=== PATIENT | male | born 1955 | race Caucasian/White ===

== ENCOUNTER 2021-03-11 20:52 | Inpatient (IN) | payer OTHER ==
[2021-03-11] MEDS ORDERED: NYSTATIN 500,000 UNITS/5 ML SUSPENSION PO ONE (21:40)
[2021-03-11] MEDS ORDERED: SODIUM CHLORIDE 1,000 ML IV STA (21:41)
[2021-03-11 22:03] LABS: BASO % 0.6 % (0-2.0); HEMATOCRIT 47.5 % (35.4-49); LYMPH % 3.6 % (8-40); MCH 31.3 pg (25.7-33.7); MCHC 35.8 g/dl (32.0-35.9); MEAN CELL VOLUME 87.5 fl (80-96); MEAN PLT VOLUME 8.2 fl (7.5-11.1); MONO % 9.1 % (3.8-10.2); NEUT % 86.7 % (42.8-82.8); PLATELET COUNT 202 K/MM3 (134-434); RBC 5.43 M/mm3 (4.00-5.60); WHITE BLOOD COUNT 17.3 K/mm3 (4.0-10.0)
[2021-03-11] MEDS ORDERED: MAGNESIUM SULF 50% (8.12 MEQ/2 ML-1 GM VIAL) IVPB ONE (22:21)
[2021-03-11] MEDS ORDERED: MAGNESIUM SULFATE IN WATER 2 GM/50 ML IVPB IVPB ONE (22:23)
[2021-03-11 22:28] LABS: CHLORIDE 81 mmol/L (98-107)
[2021-03-11 22:30] LABS: ALBUMIN 3.5 g/dl (3.4-5.0); BLOOD UREA NITROGEN 36.9 mg/dL (7-18); CALCIUM 8.2 mg/dL (8.5-10.1); CO2 12 mmol/L (21-32)
[2021-03-11 22:34] LABS: ANISOCYTOSIS 1+; CREATININE 1.7 mg/dL (0.55-1.3); MACROCYTOSIS 0; PLATELET ESTIMATE NORMAL; SGOT/AST 16 U/L (15-37); SGPT/ALT 25 U/L (13-61)
[2021-03-11 22:35] LABS: BILIRUBIN,TOTAL 0.7 mg/dL (0.2-1); TOT PROT 6.2 g/dl (6.4-8.2)
[2021-03-11 22:36] LABS: ALK PHOS 101 U/L (45-117)
[2021-03-11] MEDS ORDERED: LACTATED RINGERS SOLUTION 1000 ML INFUS.BAG IV ONE (22:50)
[2021-03-11 22:59] LABS: ANION GAP 24 MMOL/L (8-16); GLUCOSE,RANDOM 571 mg/dL (74-106); SODIUM 116 mmol/L (136-145)
[2021-03-11 23:05] LABS: VENOUS BASE EXCESS -15.8 mmol/L (-2-2); VENOUS O2 SATURATION 50.7 % (70-80); VENOUS PH 7.202 (7.310-7.410)
[2021-03-11] MEDS ORDERED: POTASSIUM CHLORIDE TABS 20 MEQ TABLET.ER (FP) PO ONE ×2 (23:08→23:45)
[2021-03-11] MEDS ORDERED: INSULIN REGULAR HUMAN 100 UNITS/ML *VIAL* (FOR IVP) IVPUSH ONE (23:10)
[2021-03-11] MEDS ORDERED: INSULIN REGULAR 100 UNITS in SODIUM CHLORIDE 99 ML IVPB SCH (23:15)
[2021-03-11 23:22] LABS: MAGNESIUM 2.4 mg/dL (1.8-2.4)
[2021-03-11] MEDS ORDERED: SODIUM CHLORIDE 0.9% 1000 ML INFUS.BAG IV ONE (23:24)
[2021-03-11] MEDS ORDERED: INSULIN REGULAR HUMAN 100 UNITS/ML *VIAL ONE (23:29)
[2021-03-11] MEDS ORDERED: KCL 10 MEQ IVPB 20 MEQ/200 ML INFUS.BAG IVPB ONE (23:31)
[2021-03-11] MEDS: KCL 10 MEQ IVPB 10 MEQ/100 ML INFUS.BAG IVPB SCH (23:43)
[2021-03-11] MEDS ORDERED: KCL 10 MEQ IVPB 10 MEQ/100 ML INFUS.BAG IVPB ONE (23:45)
[2021-03-12 00:14] LABS: CHLORIDE 85 mmol/L (98-107); SODIUM 121 mmol/L (136-145)
[2021-03-12 00:16] LABS: ANION GAP 25 MMOL/L (8-16); BLOOD UREA NITROGEN 38.7 mg/dL (7-18); CO2 12 mmol/L (21-32); MAGNESIUM 3.1 mg/dL (1.8-2.4)
[2021-03-12 00:19] LABS: CREATININE 1.5 mg/dL (0.55-1.3)
[2021-03-12] MEDS ORDERED: SODIUM CHLORIDE 1,000 ML with POTASSIUM CHLORIDE 20 MEQ IV SCH (00:30)
[2021-03-12] MEDS ORDERED: POTASSIUM CHLORIDE 20 MEQ PREMIX IVPB 100 ML IVPB SCH (00:30)
[2021-03-12 00:39] LABS: GLUCOSE,RANDOM 494 mg/dL (74-106)
[2021-03-12 00:42] LABS: EPI CELLS 14 /uL (0-25.1); HYALINE CASTS 3 /uL (0-3.1); URINE APPEARANCE CLOUDY; URINE BACTERIA 25 /uL (0-1359); URINE BILIRUBIN NEGATIVE (NEGATIVE); URINE COLOR YELLOW; URINE GLUCOSE (UA) 3+ (NEGATIVE); URINE KETONE 3+ (NEGATIVE); URINE LEUK ESTERASE NEGATIVE (NEGATIVE); URINE NITRITE NEGATIVE (NEGATIVE); URINE PROTEIN TRACE (NEGATIVE); URINE RBC 6 /uL (0-23.9); URINE UROBILINOGEN 0.2 mg/dL (0.2-1.0); URINE WBC 8 /uL (0-25.8)
[2021-03-12 00:56] LABS: COCAINE, UR NEGATIVE ng/ml (CUTOFF=300); METHADONE, UR NEGATIVE ng/ml (CUTOFF=300); URINE AMPHETAMINES NEGATIVE ng/ml (CUTOFF=500); URINE BARBITURATES NEGATIVE ng/ml (CUTOFF=200); URINE BENZODIAZEPINES NEGATIVE ng/ml (CUTOFF=200)
[2021-03-12 00:57] LABS: PHENCYCLIDINE,URINE NEGATIVE ng/ml (CUTOFF=25)
[2021-03-12 01:35] LABS: OPIATES, URI POSITIVE ng/ml (CUTOFF=300)
[2021-03-12] MEDS: KCL 10 MEQ IVPB 10 MEQ/100 ML INFUS.BAG IVPB SCH ×6 (01:40→23:38)
[2021-03-12 02:00] LABS: EPI CELLS 15 /uL (0-25.1); HYALINE CASTS 4 /uL (0-3.1); URINE APPEARANCE CLOUDY; URINE BACTERIA 25 /uL (0-1359); URINE BILIRUBIN NEGATIVE (NEGATIVE); URINE COLOR YELLOW; URINE GLUCOSE (UA) 3+ (NEGATIVE); URINE KETONE 3+ (NEGATIVE); URINE LEUK ESTERASE NEGATIVE (NEGATIVE); URINE NITRITE NEGATIVE (NEGATIVE); URINE PROTEIN 1+ (NEGATIVE); URINE RBC 7 /uL (0-23.9); URINE UROBILINOGEN 0.2 mg/dL (0.2-1.0); URINE WBC 9 /uL (0-25.8)
[2021-03-12 02:16] LABS: CHLORIDE 94 mmol/L (98-107); SODIUM 126 mmol/L (136-145)
[2021-03-12 02:17] LABS: CALCIUM 7.4 mg/dL (8.5-10.1)
[2021-03-12 02:18] LABS: BLOOD UREA NITROGEN 31.6 mg/dL (7-18); CO2 14 mmol/L (21-32); GLUCOSE,RANDOM 239 mg/dL (74-106)
[2021-03-12 02:25] LABS: LACTIC ACID 2.1 mmol/L (0.4-2.0)
[2021-03-12] MEDS ORDERED: D5-1/2NS+40 MEQ KCL - 40 MEQ/1,000 ML INFUS.BAG IV SCH (02:30)
[2021-03-12] MEDS ORDERED: D5-NS + 40 MEQ KCL - 40 MEQ/1,000 ML INFUS.BAG IV SCH (02:30)
[2021-03-12] MEDS: POTASSIUM CHLORIDE 20 MEQ PREMIX IVPB 100 ML IVPB SCH (02:31)
[2021-03-12] MEDS: MUPIROCIN 2% TOPICAL OINTMENT FOR DECOLONIZATION NS SCH ×3 (02:31→21:46)
[2021-03-12 02:36] LABS: ANION GAP 17 MMOL/L (8-16); CREATININE 1.2 mg/dL (0.55-1.3)
[2021-03-12] MEDS ORDERED: POTASSIUM CHLORIDE TABS 20 MEQ TABLET.ER (FP) PO ONE ×2 (02:40→23:03)
[2021-03-12] MEDS: METOCLOPRAMIDE HCL INJECTION 10 MG/2 ML VIAL IVPUSH PRN ×2 (02:51→11:57)
[2021-03-12] MEDS: SODIUM CHLORIDE 0.45% 1,000 ML with POTASSIUM CHLORIDE 40 MEQ IV SCH ×2 (03:40→07:41)
[2021-03-12] MEDS ORDERED: LACTATED RINGERS SOLUTION 1000 ML INFUS.BAG IV ONE (04:02)
[2021-03-12 05:18] LABS: BASO % 0.4 % (0-2.0); EOS % 0.3 % (0-4.5); HEMATOCRIT 43.3 % (35.4-49); HEMOGLOBIN 15.9 GM/dL (11.7-16.9); LYMPH % 8.2 % (8-40); MCH 31.6 pg (25.7-33.7); MCHC 36.7 g/dl (32.0-35.9); MEAN CELL VOLUME 86.1 fl (80-96); MEAN PLT VOLUME 8.2 fl (7.5-11.1); MONO % 11.5 % (3.8-10.2); NEUT % 79.6 % (42.8-82.8); PLATELET COUNT 183 K/MM3 (134-434); RBC 5.03 M/mm3 (4.00-5.60); WHITE BLOOD COUNT 15.8 K/mm3 (4.0-10.0)
[2021-03-12] MEDS: HEPARIN NA (PORCINE) 5,000 UNITS/ML 1ML VIAL SQ SCH ×3 (05:25→21:49)
[2021-03-12 05:39] LABS: CALCIUM 7.6 mg/dL (8.5-10.1)
[2021-03-12 05:40] LABS: ALBUMIN 3.1 g/dl (3.4-5.0); BLOOD UREA NITROGEN 32.6 mg/dL (7-18)
[2021-03-12 05:43] LABS: CREATININE 1.1 mg/dL (0.55-1.3); PHOSPHOROUS 1.6 mg/dL (2.5-4.9)
[2021-03-12 05:44] LABS: BILIRUBIN,TOTAL 0.6 mg/dL (0.2-1); TOT PROT 5.3 g/dl (6.4-8.2)
[2021-03-12 06:17] LABS: LACTIC ACID 2.3 mmol/L (0.4-2.0)
[2021-03-12] MEDS ORDERED: POTASSIUM PHOSPHATE 30 MM in SODIUM CHLORIDE 250 ML IVPB ONE (06:17)
[2021-03-12] MEDS ORDERED: POTASSIUM CHLORIDE 40 MEQ in SODIUM CHLORIDE 0.45% 1,000 ML IV SCH (08:09)
[2021-03-12] MEDS ORDERED: PNEUMOC 13-VAL CONJ-DIP CRM/PF 0.5 ML DISP.SYRIN IM ONE (10:00)
[2021-03-12] MEDS ORDERED: PNEUMOCOCCAL 23 VACCINE 0.5 ML VIAL IM ONE (10:00)
[2021-03-12] MEDS: PANTOPRAZOLE 40 MG TABLET PO SCH (10:10)
[2021-03-12 11:20] LABS: CALCIUM 7.5 mg/dL (8.5-10.1)
[2021-03-12 11:21] LABS: BLOOD UREA NITROGEN 23.1 mg/dL (7-18)
[2021-03-12 11:24] LABS: CREATININE 0.7 mg/dL (0.55-1.3)
[2021-03-12] MEDS: INSULIN (LEVEMIR) 100 UNITS/ML UNITS SQ SCH ×2 (11:35→21:53)
[2021-03-12] MEDS ORDERED: DEXTROSE 5%-WATER - 1,000 ML IV ONE (11:43)
[2021-03-12] MEDS: POTASSIUM CHLORIDE ORAL LIQUID 20 MEQ/15 ML PO SCH ×2 (11:52→21:49)
[2021-03-12] MEDS: INSULIN SLIDING SCALE (NOVOLOG) 1 VIAL SQ SCH ×2 (16:14→21:53)
[2021-03-12 17:00] LABS: ALBUMIN 2.6 g/dl (3.4-5.0); BLOOD UREA NITROGEN 18.1 mg/dL (7-18); CALCIUM 7.4 mg/dL (8.5-10.1)
[2021-03-12 17:04] LABS: CREATININE 0.7 mg/dL (0.55-1.3)
[2021-03-12 17:05] LABS: BILIRUBIN,TOTAL 0.8 mg/dL (0.2-1); TOT PROT 4.9 g/dl (6.4-8.2)
[2021-03-12] MEDS ORDERED: KCL 10 MEQ IVPB 10 MEQ/100 ML INFUS.BAG IVPB SCH (18:30)
[2021-03-12] MEDS: SODIUM CHLORIDE 0.45%/POT 20 MEQ/1,000 ML INFUS.BAG IV SCH (18:52)
[2021-03-12] MEDS ORDERED: D5-1/2NS+20 MEQ KCL - 20 MEQ/1,000 ML INFUS.BAG IV SCH (19:00)
[2021-03-12] MEDS ORDERED: D5-1/3NS+20 MEQ KCL - 20 MEQ/1,000 ML INFUS.BAG IV SCH (19:00)
[2021-03-12] MEDS ORDERED: ACETAMINOPHEN 1000 MG/100 ML VIAL (NON FORMULARY) IVPB ONE (19:56)
[2021-03-12 21:16] LABS: CHLORIDE 98 mmol/L (98-107); SODIUM 129 mmol/L (136-145)
[2021-03-12 21:17] LABS: CALCIUM 7.5 mg/dL (8.5-10.1); CO2 17 mmol/L (21-32)
[2021-03-12 21:18] LABS: BLOOD UREA NITROGEN 13.4 mg/dL (7-18); GLUCOSE,RANDOM 208 mg/dL (74-106)
[2021-03-12 21:22] LABS: CREATININE 0.6 mg/dL (0.55-1.3)
[2021-03-12 21:30] LABS: ANION GAP 13 MMOL/L (8-16)
[2021-03-12] MEDS: CHLORHEXIDINE GLUCONATE 4% CLEANSER FOR DECOLONIZATION TP SCH (21:46)
[2021-03-12 23:44] LABS: HIV INTERPRETATION NEGATIVE (NEGATIVE)
[2021-03-13] MEDS: KCL 10 MEQ IVPB 10 MEQ/100 ML INFUS.BAG IVPB SCH ×7 (01:32→21:11)
[2021-03-13 06:15] LABS: VENOUS BASE EXCESS -0.5 mmol/L (-2-2); VENOUS O2 SATURATION 93.8 % (70-80); VENOUS PCO2 30.2 mmHg (38-52); VENOUS PH 7.478 (7.310-7.410)
[2021-03-13] MEDS: HEPARIN NA (PORCINE) 5,000 UNITS/ML 1ML VIAL SQ SCH ×3 (06:19→21:12)
[2021-03-13] MEDS: INSULIN SLIDING SCALE (NOVOLOG) 1 VIAL SQ SCH ×4 (06:20→21:23)
[2021-03-13] MEDS: INSULIN (LEVEMIR) 100 UNITS/ML UNITS SQ SCH ×2 (06:20→21:23)
[2021-03-13 06:34] LABS: BASO % 0.3 % (0-2.0); EOS % 0.8 % (0-4.5); HEMATOCRIT 39.7 % (35.4-49); HEMOGLOBIN 15.1 GM/dL (11.7-16.9); LYMPH % 11.5 % (8-40); MCH 32.1 pg (25.7-33.7); MCHC 38.1 g/dl (32.0-35.9); MEAN CELL VOLUME 84.4 fl (80-96); MEAN PLT VOLUME 8.2 fl (7.5-11.1); MONO % 9.3 % (3.8-10.2); NEUT % 78.1 % (42.8-82.8); PLATELET COUNT 175 K/MM3 (134-434); RDW 13.1 % (11.9-15.9); WHITE BLOOD COUNT 9.6 K/mm3 (4.0-10.0)
[2021-03-13 06:47] LABS: INR 0.99 (0.83-1.09); PROTHROMBIN TIME (PATIENT) 12.2 SEC (9.7-13.0)
[2021-03-13 06:50] LABS: ACTIVATED PTT 24.9 SECONDS (25.2-36.5); CHLORIDE 101 mmol/L (98-107); SODIUM 133 mmol/L (136-145)
[2021-03-13 06:54] LABS: ALBUMIN 2.7 g/dl (3.4-5.0); BLOOD UREA NITROGEN 9.5 mg/dL (7-18); CALCIUM 7.8 mg/dL (8.5-10.1); CO2 23 mmol/L (21-32)
[2021-03-13 06:55] LABS: GLUCOSE,RANDOM 135 mg/dL (74-106)
[2021-03-13 06:58] LABS: CREATININE 0.4 mg/dL (0.55-1.3); SGOT/AST 10 U/L (15-37); SGPT/ALT 20 U/L (13-61)
[2021-03-13 06:59] LABS: BILIRUBIN,TOTAL 0.7 mg/dL (0.2-1)
[2021-03-13 07:00] LABS: ALK PHOS 70 U/L (45-117)
[2021-03-13 07:22] LABS: ANION GAP 8 MMOL/L (8-16)
[2021-03-13] MEDS ORDERED: POTASSIUM CHLORIDE TABS 20 MEQ TABLET.ER (FP) PO ONE (07:34)
[2021-03-13] MEDS ORDERED: POTASSIUM CHLORIDE ORAL LIQUID 20 MEQ/15 ML PO SCH (07:38)
[2021-03-13] MEDS ORDERED: KCL 10 MEQ IVPB 10 MEQ/100 ML INFUS.BAG IVPB SCH (07:45)
[2021-03-13] MEDS ORDERED: MAGNESIUM SULF 50% (8.12 MEQ/2 ML-1 GM VIAL) IVPB ONE ×3 (07:54→08:30)
[2021-03-13] MEDS ORDERED: MAGNESIUM OXIDE 400 MG TABLET (FP) PO ONE ×2 (07:54→07:55)
[2021-03-13 08:19] LABS: MAGNESIUM 2.1 mg/dL (1.8-2.4)
[2021-03-13 08:25] LABS: PHOSPHOROUS 0.8 mg/dL (2.5-4.9)
[2021-03-13] MEDS ORDERED: ONDANSETRON 4 MG/2 ML VIAL IVPUSH PRN (08:27)
[2021-03-13] MEDS: POTASSIUM CHLORIDE TABS 20 MEQ TABLET.ER (FP) PO SCH ×2 (08:59→21:12)
[2021-03-13] MEDS: PANTOPRAZOLE 40 MG TABLET PO SCH (09:17)
[2021-03-13 10:43] LABS: CHLORIDE 101 mmol/L (98-107); SODIUM 133 mmol/L (136-145)
[2021-03-13 10:47] LABS: BLOOD UREA NITROGEN 8.4 mg/dL (7-18); CO2 22 mmol/L (21-32); GLUCOSE,RANDOM 151 mg/dL (74-106); MAGNESIUM 2.6 mg/dL (1.8-2.4)
[2021-03-13 10:50] LABS: CREATININE 0.4 mg/dL (0.55-1.3)
[2021-03-13] MEDS ORDERED: POTASSIUM PHOSPHATE 30 MM in SODIUM CHLORIDE 500 ML IVPB ONE ×2 (11:00→13:00)
[2021-03-13 11:23] LABS: ANION GAP 10 MMOL/L (8-16); PHOSPHOROUS 0.7 mg/dL (2.5-4.9)
[2021-03-13] MEDS ORDERED: INSULIN (NOVOLOG) ASPART 100 UNITS/ML 10ML VIAL ONE (11:45)
[2021-03-13] MEDS: MUPIROCIN 2% TOPICAL OINTMENT FOR DECOLONIZATION NS SCH ×2 (11:52→21:11)
[2021-03-13] MEDS ORDERED: PT OWN MED DRAWER 7, Y5N ONE (14:51)
[2021-03-13 16:24] VITALS: BMI 27.2
[2021-03-13] MEDS ORDERED: DOCUSATE SODIUM 100 MG CAPSULE (FP) PO PRN (17:17)
[2021-03-13 18:52] LABS: BLOOD UREA NITROGEN 8.2 mg/dL (7-18); MAGNESIUM 2.3 mg/dL (1.8-2.4)
[2021-03-13 18:55] LABS: CREATININE 0.5 mg/dL (0.55-1.3); PHOSPHOROUS 2.4 mg/dL (2.5-4.9)
[2021-03-13] MEDS: SODIUM CHLORIDE 0.45%/POT 20 MEQ/1,000 ML INFUS.BAG IV SCH (19:25)
[2021-03-13] MEDS ORDERED: POTASSIUM PHOSPHATE 30 MM in DEXTROSE 5%-WATER - 250 ML IVPB ONE ×2 (19:56→22:00)
[2021-03-13] MEDS: CHLORHEXIDINE GLUCONATE 4% CLEANSER FOR DECOLONIZATION TP SCH (21:12)
[2021-03-13] MEDS: SENNOSIDES 8.6MG TABLET (FP) PO SCH (21:24)
[2021-03-13] MEDS ORDERED: DEXMEDETOMIDINE IN 0.9 % NACL 400 MCG/100 ML VIAL IVPB SCH (21:30)
[2021-03-14 00:47] LABS: CALCIUM 7.9 mg/dL (8.5-10.1)
[2021-03-14 00:48] LABS: BLOOD UREA NITROGEN 8.5 mg/dL (7-18); MAGNESIUM 2.2 mg/dL (1.8-2.4)
[2021-03-14 00:51] LABS: CREATININE 0.4 mg/dL (0.55-1.3); PHOSPHOROUS 2.1 mg/dL (2.5-4.9)
[2021-03-14] MEDS: HEPARIN NA (PORCINE) 5,000 UNITS/ML 1ML VIAL SQ SCH ×3 (05:28→21:12)
[2021-03-14 06:28] LABS: CALCIUM 7.9 mg/dL (8.5-10.1)
[2021-03-14 06:29] LABS: BLOOD UREA NITROGEN 8.9 mg/dL (7-18); MAGNESIUM 2.1 mg/dL (1.8-2.4)
[2021-03-14 06:32] LABS: CREATININE 0.5 mg/dL (0.55-1.3)
[2021-03-14] MEDS: INSULIN (LEVEMIR) 100 UNITS/ML UNITS SQ SCH ×2 (06:44→21:08)
[2021-03-14] MEDS: INSULIN SLIDING SCALE (NOVOLOG) 1 VIAL SQ SCH ×4 (06:45→21:08)
[2021-03-14] MEDS ORDERED: THIAMINE HCL 200 MG/2 ML VIAL IVPB SCH (10:00)
[2021-03-14] MEDS: SODIUM CHLORIDE 0.45%/POT 20 MEQ/1,000 ML INFUS.BAG IV SCH ×2 (10:00→18:09)
[2021-03-14] MEDS: PANTOPRAZOLE 40 MG TABLET PO SCH (10:01)
[2021-03-14] MEDS: POTASSIUM CHLORIDE TABS 20 MEQ TABLET.ER (FP) PO SCH ×2 (10:01→21:10)
[2021-03-14] MEDS: MUPIROCIN 2% TOPICAL OINTMENT FOR DECOLONIZATION NS SCH ×2 (10:01→21:12)
[2021-03-14] MEDS: SENNOSIDES 8.6MG TABLET (FP) PO SCH (21:11)
[2021-03-14] MEDS: CHLORHEXIDINE GLUCONATE 4% CLEANSER FOR DECOLONIZATION TP SCH (21:12)
[2021-03-15] MEDS ORDERED: LORazepam 2 MG/ML SDV VIAL IVPUSH ONE (03:18)
[2021-03-15] MEDS: SODIUM CHLORIDE 0.45%/POT 20 MEQ/1,000 ML INFUS.BAG IV SCH ×3 (03:52→22:31)
[2021-03-15] MEDS: HEPARIN NA (PORCINE) 5,000 UNITS/ML 1ML VIAL SQ SCH ×3 (06:02→22:30)
[2021-03-15] MEDS: INSULIN SLIDING SCALE (NOVOLOG) 1 VIAL SQ SCH ×4 (06:02→22:30)
[2021-03-15] MEDS: INSULIN (LEVEMIR) 100 UNITS/ML UNITS SQ SCH ×2 (06:02→22:21)
[2021-03-15] MEDS ORDERED: POTASSIUM PHOSPHATE 30 MM in DEXTROSE 5%-WATER - 250 ML IVPB ONE (09:57)
[2021-03-15] MEDS ORDERED: ONDANSETRON 4 MG/2 ML VIAL IVPUSH PRN (09:57)
[2021-03-15] MEDS ORDERED: DOCUSATE SODIUM 100 MG CAPSULE (FP) PO PRN (09:57)
[2021-03-15] MEDS ORDERED: METOCLOPRAMIDE HCL INJECTION 10 MG/2 ML VIAL IVPUSH PRN (09:57)
[2021-03-15] MEDS ORDERED: SODIUM CHLORIDE 0.45%/POT 20 MEQ/1,000 ML INFUS.BAG IV SCH (09:57)
[2021-03-15] MEDS ORDERED: MUPIROCIN 2% TOPICAL OINTMENT FOR DECOLONIZATION NS SCH (10:00)
[2021-03-15] MEDS ORDERED: POTASSIUM CHLORIDE TABS 20 MEQ TABLET.ER (FP) PO SCH (10:00)
[2021-03-15] MEDS ORDERED: POTASSIUM PHOSPHATE 30 MM in SODIUM CHLORIDE 500 ML IVPB ONE (11:00)
[2021-03-15] MEDS: PANTOPRAZOLE 40 MG TABLET PO SCH (11:41)
[2021-03-15] MEDS: THIAMINE HCL 200 MG/2 ML VIAL IVPB SCH (11:42)
[2021-03-15 13:32] LABS: BLOOD UREA NITROGEN 11.1 mg/dL (7-18); CALCIUM 8.5 mg/dL (8.5-10.1)
[2021-03-15 13:33] LABS: ALBUMIN 2.6 g/dl (3.4-5.0); MAGNESIUM 1.9 mg/dL (1.8-2.4)
[2021-03-15 13:35] LABS: CREATININE 0.5 mg/dL (0.55-1.3)
[2021-03-15 13:36] LABS: PHOSPHOROUS 2.9 mg/dL (2.5-4.9)
[2021-03-15 13:37] LABS: BILIRUBIN,TOTAL 0.4 mg/dL (0.2-1); TOT PROT 5.2 g/dl (6.4-8.2)
[2021-03-15] MEDS: LOSARTAN POTASSIUM 50 MG TABLET PO SCH (14:10)
[2021-03-15] MEDS ORDERED: CHLORHEXIDINE GLUCONATE 4% CLEANSER FOR DECOLONIZATION TP SCH (22:00)
[2021-03-15] MEDS ORDERED: INSULIN (NOVOLOG) ASPART 100 UNITS/ML 10ML VIAL ONE (22:24)
[2021-03-15] MEDS: SENNOSIDES 8.6MG TABLET (FP) PO SCH (22:30)
[2021-03-15] MEDS: MELATONIN 5 MG TABLETS PO SCH (23:10)
[2021-03-16] MEDS: INSULIN (LEVEMIR) 100 UNITS/ML UNITS SQ SCH ×2 (06:55→22:09)
[2021-03-16] MEDS: INSULIN SLIDING SCALE (NOVOLOG) 1 VIAL SQ SCH ×4 (06:56→22:10)
[2021-03-16] MEDS: HEPARIN NA (PORCINE) 5,000 UNITS/ML 1ML VIAL SQ SCH ×3 (06:56→22:09)
[2021-03-16] MEDS ORDERED: INSULIN (NOVOLOG) ASPART 100 UNITS/ML 10ML VIAL ONE ×2 (07:03→10:43)
[2021-03-16] MEDS: MULTIVITAMINS (DAILY MVI) TABLET (FP) PO SCH (10:49)
[2021-03-16] MEDS: FOLIC ACID 1 MG TABLET (FP) PO SCH (10:49)
[2021-03-16] MEDS: THIAMINE HCL 200 MG/2 ML VIAL IVPB SCH (10:49)
[2021-03-16] MEDS: PANTOPRAZOLE 40 MG TABLET PO SCH (10:49)
[2021-03-16] MEDS: LOSARTAN POTASSIUM 50 MG TABLET PO SCH (10:49)
[2021-03-16 11:47] LABS: BASO % 0.6 % (0-2.0); EOS % 3.5 % (0-4.5); HEMATOCRIT 40.9 % (35.4-49); HEMOGLOBIN 14.2 GM/dL (11.7-16.9); LYMPH % 19.9 % (8-40); MCH 31.6 pg (25.7-33.7); MCHC 34.7 g/dl (32.0-35.9); MEAN CELL VOLUME 90.9 fl (80-96); MEAN PLT VOLUME 7.7 fl (7.5-11.1); MONO % 12.2 % (3.8-10.2); NEUT % 63.8 % (42.8-82.8); PLATELET COUNT 284 K/MM3 (134-434); WHITE BLOOD COUNT 8.6 K/mm3 (4.0-10.0)
[2021-03-16 12:14] LABS: ALBUMIN 2.6 g/dl (3.4-5.0); BLOOD UREA NITROGEN 10.4 mg/dL (7-18); CALCIUM 8.4 mg/dL (8.5-10.1); MAGNESIUM 1.7 mg/dL (1.8-2.4)
[2021-03-16 12:18] LABS: BILIRUBIN,TOTAL 0.3 mg/dL (0.2-1); CREATININE 0.6 mg/dL (0.55-1.3)
[2021-03-16] MEDS ORDERED: MAGNESIUM OXIDE 400 MG TABLET (FP) PO ONE (16:50)
[2021-03-16] MEDS: MELATONIN 5 MG TABLETS PO SCH (22:09)
[2021-03-16] MEDS: SENNOSIDES 8.6MG TABLET (FP) PO SCH (22:10)
[2021-03-17] MEDS: INSULIN (LEVEMIR) 100 UNITS/ML UNITS SQ SCH (06:24)
[2021-03-17] MEDS: HEPARIN NA (PORCINE) 5,000 UNITS/ML 1ML VIAL SQ SCH ×2 (06:25→14:20)
[2021-03-17] MEDS: INSULIN SLIDING SCALE (NOVOLOG) 1 VIAL SQ SCH ×3 (06:25→16:44)
[2021-03-17 08:55] LABS: BASO % 0.5 % (0-2.0); EOS % 3.4 % (0-4.5); HEMATOCRIT 40.3 % (35.4-49); HEMOGLOBIN 14.5 GM/dL (11.7-16.9); LYMPH % 20.8 % (8-40); MCH 31.9 pg (25.7-33.7); MCHC 35.9 g/dl (32.0-35.9); MEAN PLT VOLUME 7.3 fl (7.5-11.1); NEUT % 63.3 % (42.8-82.8); PLATELET COUNT 302 K/MM3 (134-434); RBC 4.53 M/mm3 (4.00-5.60); RDW 12.7 % (11.9-15.9)
[2021-03-17 09:28] LABS: ALBUMIN 2.7 g/dl (3.4-5.0); BLOOD UREA NITROGEN 9.6 mg/dL (7-18); CALCIUM 8.4 mg/dL (8.5-10.1)
[2021-03-17 09:32] LABS: CREATININE 0.5 mg/dL (0.55-1.3)
[2021-03-17 09:33] LABS: BILIRUBIN,TOTAL 0.4 mg/dL (0.2-1); TOT PROT 5.2 g/dl (6.4-8.2)
[2021-03-17] MEDS: LOSARTAN POTASSIUM 50 MG TABLET PO SCH (10:45)
[2021-03-17] MEDS: MULTIVITAMINS (DAILY MVI) TABLET (FP) PO SCH (10:45)
[2021-03-17] MEDS: PANTOPRAZOLE 40 MG TABLET PO SCH (10:45)
[2021-03-17] MEDS: FOLIC ACID 1 MG TABLET (FP) PO SCH (10:45)
[2021-03-17] MEDS: THIAMINE HCL 200 MG/2 ML VIAL IVPB SCH (10:46)
[2021-03-17] MEDS ORDERED: POTASSIUM CHLORIDE TABS 20 MEQ TABLET.ER (FP) PO ONE (12:16)
[2021-03-17 18:15] VITALS: BP 130/80; PULSE 105; TEMP 98.7
== END 2021-03-17 18:45 | disposition home or self-care (01) | DRG 420 ==
LOC: JER 20:52 → JERBED 23:15 → JICU 03-12 02:03 → J5S 03-15 09:29
PROVIDERS: ADMIT Internal Medicine; ATTEND Nurse Practitioner Acute Care
DX: E11.10 Type 2 diabetes mellitus with ketoacidosis without coma (principal); G93.41 Metabolic encephalopathy; E87.1 Hypo-osmolality and hyponatremia; N17.9 Acute kidney failure, unspecified; E87.2 Acidosis; F10.188 Alcohol abuse with other alcohol-induced disorder; E87.6 Hypokalemia; E83.39 Other disorders of phosphorus metabolism; D72.829 Elevated white blood cell count, unspecified; R11.2 Nausea with vomiting, unspecified; E11.65 Type 2 diabetes mellitus with hyperglycemia; F11.129 Opioid abuse with intoxication, unspecified; I10 Essential (primary) hypertension; I25.10 Atherosclerotic heart disease of native coronary artery without angina pectoris; Z95.5 Presence of coronary angioplasty implant and graft; E78.5 Hyperlipidemia, unspecified; B37.0 Candidal stomatitis; E86.0 Dehydration
CPT/HCPCS: 36415; 70450-TC; 71045-TC-FY; 76705-TC; 80048; 80053; 80307; 81003; 82010; 82140; 82340; 82436; 82550; 82553; 82570; 82803; 82962; 83036; 83605; 83690; 83735; 84100; 84132; 84133; 84156; 84300; 84443; 84484; 85025; 85610; 85730; 87040; 87086; 87389; 87899; 90732; 93005; 93010; 93970-TC; 94010; 97116-GP; 97162-GP; 99291; C9803; G0009; J1644; J3480; U0003; U0005